=== PATIENT | female | born 1970 | race Caucasian/White ===

== ENCOUNTER 2016-05-19 21:04 | Emergency (ER) | payer OTHER ==
[2016-05-19 22:15] LABS: BASOPHIL % 0.8 % (0-2); PLATELET COUNT 249 x10^3mcL (130-400)
[2016-05-19 22:19] LABS: RED CELL DISTRIBUTION WIDTH 15.2 % (11.5-14.5)
[2016-05-19 22:27] LABS: CALCIUM 8.2 mg/dL (8.5-10.1); CARBON DIOXIDE 28.4 mmol/L (21-32); CHLORIDE SERUM 104 mmol/L (98-107); CREATININE SERUM 0.7 mg/dL (0.6-1.0); GFR1 > 60 mL/min; GLUCOSE SERUM 94 mg/dL (74-106); POTASSIUM SERUM 3.7 mmol/L (3.5-5.1); SODIUM SERUM 140 mmol/L (136-145)
[2016-05-19 22:28] LABS: ALBUMIN 3.6 g/dL (3.4-5.0); ALKALINE PHOSPHATASE 70 U/L (46-116); ALT/SGPT 27 U/L (14-59); AST/SGOT 19 U/L (15-37); BILIRUBIN TOTAL 0.4 mg/dL (0.20-1.00); TOTAL PROTEIN, SERUM 6.9 g/dL (6.4-8.2)
[2016-05-19 23:25] VITALS: BP 116/87
== END 2016-05-19 23:26 | disposition home or self-care (01) ==
LOC: ED 21:04
PROVIDERS: Emergency Medicine
DX: F41.0 Panic disorder [episodic paroxysmal anxiety] (principal); D50.9 Iron deficiency anemia, unspecified
CPT/HCPCS: G0480; J2060; J2405